=== PATIENT | female | born 1940 | race Caucasian/White ===

== ENCOUNTER → 2023-05-01 12:36 | Outpatient (REF) | payer MEDICARE, BC, SELFPAY ==
[2023-05-01 14:12] LABS: % Basophils 0.6 % (0-2); % Eosinophils 1.9 % (0-6); % Immature Granulocytes 0.5 % (0-0.5); % Lymphocytes 25.1 % (20.5-51.1); % Monocytes 7.4 % (1.7-9.3); % Neutrophils 64.5 % (42.2-75.2); Absolute Basophils 0.1 10^3/uL (0-0.2); Absolute Eosinophils 0.2 10^3/uL (0-0.7); Absolute Lymphocytes 2.1 10^3/uL (1.2-3.4); Absolute Monocytes 0.6 10^3/uL (0.1-0.6); Absolute Neutrophils 5.5 10^3/uL (1.4-6.5); Hemoglobin 14.8 g/dL (12.0-16.0); Mean Corp Hgb Conc. 32.9 g/dL (33.0-37.0); Mean Corpuscular Hgb 28.7 pg (27.0-31.0); Mean Corpuscular Volume 87.2 fL (81.0-99.0); Mean Platelet Volume 11.3 fL (7.4-10.4); Nucleated Red Blood Cells % 0 %; Platelet Count 248 10^3/uL (130-400); Red Blood Cell Count 5.16 10^6/uL (4.20-5.40); Red Cell Dist. Width 14.8 % (11.5-14.5); White Blood Cell Count 8.5 10^3/uL (4.8-10.8)
[2023-05-01 14:50] LABS: Glycohemoglobin (HgbA1c) 7.1 % (4.0-5.6)
[2023-05-01 15:37] LABS: Blood Urea Nitrogen 18 mg/dl (7-17); Calcium 9.5 mg/dl (8.4-10.2); Carbon Dioxide 26 mmol/L (22-30); Chloride 101 mmol/L (98-107); Glucose 164 mg/dl (70-99); Phosphorus 4.3 mg/dl (2.5-4.5); Potassium 4.6 mmol/L (3.5-5.1); Sodium 135 mmol/L (135-145)
== END ==
LOC: REG 12:36
PROVIDERS: ATTENDING PHYSICIAN Student in an Organized Health Care Education/Training Program
DX: R06.09 Other forms of dyspnea (principal); N18.31 Chronic kidney disease, stage 3a; E11.65 Type 2 diabetes mellitus with hyperglycemia
CPT/HCPCS: 36415; 80069; 83036; 85025

== ENCOUNTER → 2023-05-18 10:12 | Outpatient (REF) | payer MEDICARE, BC, SELFPAY | LOC: RAD 10:12 | PROVIDERS: ATTENDING PHYSICIAN Student in an Organized Health Care Education/Training Program | DX: R06.09 Other forms of dyspnea (principal) | CPT/HCPCS: 71250 ==

== ENCOUNTER → 2023-09-08 11:53 | Outpatient (REF) | payer MEDICARE, BC, SELFPAY ==
[2023-09-08 13:33] LABS: Albumin 3.5 g/dl (3.5-5.0); Blood Urea Nitrogen 14 mg/dl (7-17); Calcium 9.5 mg/dl (8.4-10.2); Carbon Dioxide 25 mmol/L (22-30); Chloride 103 mmol/L (98-107); Glucose 136 mg/dl (70-99); Phosphorus 3.8 mg/dl (2.5-4.5); Potassium 4.4 mmol/L (3.5-5.1); Sodium 135 mmol/L (135-145); eGFR 50.48
[2023-09-08 13:57] LABS: Glycohemoglobin (HgbA1c) 6.7 % (4.0-5.6)
== END ==
LOC: REG 11:53
PROVIDERS: ATTENDING PHYSICIAN Student in an Organized Health Care Education/Training Program
DX: E11.22 Type 2 diabetes mellitus with diabetic chronic kidney disease (principal)
CPT/HCPCS: 36415; 80069; 83036

== ENCOUNTER → 2023-09-19 12:41 | Outpatient (REF) | payer MEDICARE, BC, SELFPAY | LOC: RAD 12:41 | PROVIDERS: ATTENDING PHYSICIAN Surgery Vascular Surgery; FAMILY PHYSICIAN Student in an Organized Health Care Education/Training Program | DX: I65.21 Occlusion and stenosis of right carotid artery (principal) | CPT/HCPCS: 93880 ==

== ENCOUNTER → 2024-02-26 12:05 | Outpatient (REF) | payer MEDICARE, BC, SELFPAY | LOC: RAD 12:05 | PROVIDERS: FAMILY PHYSICIAN Student in an Organized Health Care Education/Training Program | DX: J18.9 Pneumonia, unspecified organism (principal) | CPT/HCPCS: 71046 ==

== ENCOUNTER → 2024-05-31 13:23 | Outpatient (REF) | payer MEDICARE, BC, SELFPAY ==
[2024-05-31 14:50] LABS: ALT (SGPT) 43 U/L (0-35); AST (SGOT) 47 U/L (14-36); Albumin 3.9 g/dl (3.5-5.0); Alkaline Phosphatase 111 U/L (38-126); Direct Bilirubin 0.3 mg/dl (0.0-0.4); Total Bilirubin 0.6 mg/dl (0.2-1.3)
[2024-05-31 15:15] LABS: TSH Reflex To Free T4 0.77 uIU/ml (0.47-4.68)
== END ==
LOC: REG 13:23
PROVIDERS: ATTENDING PHYSICIAN Internal Medicine Cardiovascular Disease; FAMILY PHYSICIAN Student in an Organized Health Care Education/Training Program
DX: I48.0 Paroxysmal atrial fibrillation (principal)
CPT/HCPCS: 36415; 80076; 84443

== ENCOUNTER → 2024-07-04 13:13 | Outpatient (REF) | payer MEDICARE, BC, SELFPAY ==
[2024-07-04 15:32] LABS: ALT (SGPT) 42 U/L (0-35); AST (SGOT) 52 U/L (14-36)
== END ==
LOC: REG 13:13
PROVIDERS: ATTENDING PHYSICIAN Internal Medicine Cardiovascular Disease; FAMILY PHYSICIAN Student in an Organized Health Care Education/Training Program
DX: I10 Essential (primary) hypertension (principal); R79.89 Other specified abnormal findings of blood chemistry
CPT/HCPCS: 36415; 84450; 84460

== ENCOUNTER 2024-07-05 15:48 | Inpatient (IN) | payer MEDICARE, BC, SELFPAY ==
[2024-07-05] VITALS (9 sets, daily range): BP systolic 135–176; BP diastolic 61–90; BMI 32.4
[2024-07-05 11:35] LABS: % Basophils 0.4 % (0-2); % Immature Granulocytes 0.4 % (0-0.5); % Lymphocytes 30.6 % (20.5-51.1); % Monocytes 7.5 % (1.7-9.3); % Neutrophils 60.1 % (42.2-75.2); Absolute Eosinophils 0.1 10^3/uL (0-0.7); Absolute Lymphocytes 2.9 10^3/uL (1.2-3.4); Absolute Monocytes 0.7 10^3/uL (0.1-0.6); Absolute Neutrophils 5.7 10^3/uL (1.4-6.5); Hematocrit 47.2 % (37.0-47.0); Hemoglobin 15.6 g/dL (12.0-16.0); Mean Corp Hgb Conc. 33.1 g/dL (33.0-37.0); Mean Corpuscular Hgb 29.3 pg (27.0-31.0); Mean Corpuscular Volume 88.7 fL (81.0-99.0); Mean Platelet Volume 11.2 fL (7.4-10.4); Nucleated Red Blood Cells % 0 %; Platelet Count 224 10^3/uL (130-400); Red Blood Cell Count 5.32 10^6/uL (4.20-5.40); Red Cell Dist. Width 14.4 % (11.5-14.5); White Blood Cell Count 9.5 10^3/uL (4.8-10.8)
[2024-07-05 11:44] LABS: APTT 33.6 Sec (23.4-35.0)
[2024-07-05 11:48] LABS: ALT (SGPT) 39 U/L (0-35); AST (SGOT) 50 U/L (14-36); Albumin 3.8 g/dl (3.5-5.0); Alkaline Phosphatase 112 U/L (38-126); Blood Urea Nitrogen 15 mg/dl (7-17); Carbon Dioxide 24 mmol/L (22-30); Chloride 106 mmol/L (98-107); Glucose 221 mg/dl (70-99); Potassium 4.3 mmol/L (3.5-5.1); Sodium 137 mmol/L (135-145); Total Bilirubin 0.8 mg/dl (0.2-1.3); Total Protein 6.9 g/dl (6.3-8.2)
--- NOTE | 2024-07-05 14:52 | ED.GENMED ---
History of Present Illness
General
Chief Complaint: Rectal Bleeding
Source: patient
Exam Limitations: none
Time Seen by Provider: 07/05/24 13:56
Nursing documentation reviewed up to this point in time: agreed with
History of Present Illness
History of Present Illness:
Patient with history of paroxysmal atrial fibrillation on Eliquis, presents to ED secondary to multiple episodes of bloody bowel movements with intermittent abdominal cramping sensation since last night. Denies fever or chills. Denies nausea or
vomiting. Denies trauma. Denies dizziness. Denies shortness of breath. Denies recent change in medications or diet. Denies recent illness. Denies recent travel. Patient reports having had similar approximate 25 years ago, when she was
diagnosed with colitis w multiples ulcers, now resolved.
Past History
Past History
ED Past Medical History: Arrthythmia, HTN, Hypercholesterolemia, NIDDM and Other (Prediabetes prediabetes)
ED Past Surgical History: Cholecystectomy and Gynecological (Tubal ligation)
Social History
Tobacco: Non-smoker
Alcohol: None
Drug: None
Personal:
Living: alone
Employment: Retired
Family History
Family History: Other (Mother and father with coronary disease. Grandmother with a cerebral hemorrhage)
Review of Systems
Review of Systems
Allergies reviewed?: Yes
All Other Systems: ROS reviewed and negative except as documented in HPI and ROS
Constitutional: Reports no symptoms; Denies fever
Respiratory: Reports no symptoms
ABD/GI: Reports abdominal pain and bloody stools; Denies nausea or vomiting
Musculoskeletal: Reports no symptoms
Skin: Reports no symptoms
Neurological: Reports no symptoms; Denies dizzy or weakness
Phy Exam
Physical Exam
Physical Exam:
Physical Exam
General: no apparent distress, not acutely ill. afebrile
Head: nc/at. eomi
Neck: supple. no meningeal signs.
Heart: s1/s2 regular rate and rhythm
Lungs: no acute respiratory distress. clear bilaterally
Abdomen: normal bowel sounds. not tender
Neuro: alert and oriented x 3. no focal neurological deficits
Skin: no rash
Psychiatric: well kept. interactive and cooperative
Extremities: no edema. no calf tenderness.
Course
Orders/Labs/Results
Orders:
Orders
07/05/24 11:19
Type+Screen Urgent
Complete Blood Count/With Diff Urgent
Comprehensive Metabolic Panel Urgent
PTT Urgent
07/05/24 15:19
Admit/Transfer Patient As Directed
Co-Sign Provider:
Level of Care: Inpatient admission
Assign to:: Medical/Surgical
Physician / Group: rolando
Diagnosis: gi bleeding
Reason for Hospitalization: gi bleeding
Expected length of stay greater than two midnights?: Yes
ELOS- Estimated Length of Stay in days: 2
I certify the patient meets the requirements for IP care: Yes
PRN Pain Medication Management As Directed
May give lesser potent ordered pain med per pt: Yes
preference::
Protocol:: Medication orders for pain may be administered in a
manner that supports deferring to patient preference
when the pt is:
- Requesting an ordered lesser potent pain medication.
Least to most potent pain medications are defined
as: acetaminophen < NSAID < tramadol < opioids
(morphine, oxycodone, hydromorphone).
- Requesting a lesser dose of the same medication IF
ORDERED.
- Requesting a less intrusive route of administration
if both routes are prescribed by the provider (PO <
IV).
07/05/24 15:20
Code Status As Directed
Resuscitation Status: Do not resuscitate
Reached after discussion with pt or family/Healthcare POA: Yes
DNR Bracelet Application ONCE
Abnormal Lab Results
07/05/24
11:19
Hct 47.2 H %
(37.0-47.0)
MPV 11.2 H fL
(7.4-10.4)
Absolute Monos (auto) 0.7 H 10^3/uL
(0.1-0.6)
Creatinine 1.4 H mg/dL
(0.6-1.0)
Glucose 221 H mg/dl
(70-99)
AST 50 H U/L
(14-36)
ALT 39 H U/L
(0-35)
07/05/24 11:19
07/05/24 11:19
Vital Signs
Initial and Last Documented VS:
Initial Vital Signs
Temp Pulse Resp BP Pulse Ox
98.0 F 91 20 135/90 97
07/05/24 11:09 07/05/24 11:09 07/05/24 11:09 07/05/24 11:09 07/05/24 11:09
Last Documented Vital Signs
Temp Pulse Resp BP Pulse Ox
98.0 F 60 18 170/72 97
07/05/24 11:09 07/05/24 20:04 07/05/24 16:21 07/05/24 20:00 07/05/24 20:00
MDM/Problems Addressed
MDM/Problems Addressed:
H/H noted.
Will admit for further evaluation and treatment, as she has had 3 additional episodes of bloody BMs, during observation in ED.
Discussed with () via tigertext
*Critical Care Note
Total Time (30-74mins, 75-104mins- exclusive of procedures): Not Applicable
ED Attending Note
-
Portions of this chart may have been created with voice recognition software.� Occasional wrong word or��sound alike� substitutions may have occurred due to the inherent limitations of voice recognition software.
Discharge Plan
Departure
Patient Disposition: Admit
Date of Disposition: 07/05/24
Time of Disposition: 15:04
Presentation/result/management discussed w/ accepting MD/DO: Hospitalist
Discharge Problem:
Rectal bleeding
Interventions
Interventions:
*Risk Screen - Suicide Last Done: 07/05/24 16:20
*General Assessment Last Done: 07/05/24 11:09
*Neglect/Abuse Screening Last Done: 07/05/24 16:20
*ED- Fall Risk Assessment Last Done: 07/05/24 16:20
*ED COVID-19 Vaccine History Last Done: 07/05/24 18:28
XT-Grsfkn-Lpplojzlbk Assessment Last Done: 07/05/24 16:35
ED- Cardiac Assessment Last Done: 07/05/24 16:35
ED- Pulmonary Assessment Last Done: 07/05/24 16:35
--- NOTE | 2024-07-05 15:09 | CON.GI ---
Addendum entered and electronically signed by Carlee Mcneil MD 07/05/24 16:50:
I saw and examined the patient.
The [facility]'s note was reviewed and I agree with the note.
Comment: This is a very pleasant 83-year-old female with past medical history of A-fib on Eliquis, diabetes on Rybelsus, status post pacemaker, hypertension, hyperlipidemia, PE, PVD, remote h/o UC rest of medical history as below who had presented
with to lab yesterday for blood draw and she says that she was having minimal abdominal cramping and had not really eaten much yesterday and had very little to drink but when she went home she started to experience lower abdominal cramps and had
then noticed blood in her stool. Then she felt a little bit better but today morning she had a couple more episodes of cramping with rectal bleeding and presented to the emergency room. She did have mild dizziness no syncope. No fevers or chills
no nausea or vomiting. She was having lower abdominal pain predominantly left lower quadrant pain. Her hemoglobin on admission is stable she has mildly elevated AST and ALT level which has been stable over the past couple months. She says since
she started the Rybelsus she has been having more constipation and takes Colace as needed she says MiraLAX did not help her in the past. Remote history of UC but has not been on medications and has been in remission her last colonoscopy was in [address] Tom which showed diverticulosis and minimal erythema in the sigmoid colon.
Assessment and plan abdominal pain with rectal bleeding most likely ischemic colitis versus less likely diverticulitis with bleeding or infectious colitis, less likely IBD she does have a remote history of UC but has not been on medications and in
remission unclear if it was probable segmental colitis related to diverticulosis versus UC. Since her symptoms have improved and she has not had any further rectal bleeding will hold on CT for now but if her symptoms recur then will get a CAT scan
she also has mildly elevated creatinine so will not be able to get contrast for CTA currently. her Eliquis is also on hold. She also has mildly elevated AST and ALT which could be related to fatty liver and also could be related to amiodarone and
simvastatin been stable and will need further workup as outpatient. May also need an abdomen ultrasound. she has lost weight since she started the Rybelsus.
Addendum entered and electronically signed by LATIA Sargent 07/05/24 16:24:
cont to hold Eliquis last dose 07/04 PM
Original Note:
Consultation
-
Date/Time Consultation Requested: 07/05/24 1500
Date/Time Consultation Performed: 07/05/24 1510
Requesting Provider: Rudi Barker MD
Performing Provider: LATIA Alvarez, Carlee Mcneil MD
Reason for Consultation: rectal bleeding
Medical History
Chief Complaint / HPI
Chief Complaint: bloody stools
History of Present Illness:
Pt is a 83yo presents hx afib on Eliquis prior RVR, distant hx ? ulcerative colitis pt recall prednisone therapy, NIDDM on Rybelsus with wt loss, GERD, HTN, hyperlipidemia, PE, obesity, PVD, prior CBD stone ERCP and bertha with onset of multiple
bloody BM's since 07/04. Initially pt saw red bleed then some darker clots. Bleeding was associated with some lower abdominal pain. On admission labs notable for hbg 15.6, creat 1.4, glucose 221, bili 0.8, AST 50, ALT 39, alk phos 112 with recent
elevated LFT's. CT held on admission with elevated creat and slow improved bleeding.
In review with patient she admit to history of ulcerative colitis many years ago. She has not had any recurrent symptoms but admits to constipation over last year since starting Rybelsus. She admits to hx GERD with Prilosec BID use, She
otherwise denies dysphagia, odynophagia, nausea, vomiting, diarrhea or black stools. hx colonoscopy [address] Dr. Tom - Diverticulosis. - Erythematous mucosa in the sigmoid colon. - Diverticulosis without evidence of diverticular bleeding. -
Irritable bowel syndrome. - Hemorrhoids.
Past Medical History
Past Medical History: Arrhythmias (afib with hx RVR on chronic Eliquis, bradicardia ), GERD, HTN, Hypercholesterolemia, NIDDM and Other (PE 2008,obesity, DJD, PVD, possible ulcerative colitis 20 + years ago with prednisone therapy )
Past Surgical History: Cardiac (pacer), Cholecystectomy, Gynecological (tubal ) and Other (ERCP [address] Linn stone removal and sphincterotomy, CEA 2020)
Social History
Tobacco: Non-Smoker
Alcohol: None
Drug: None
Living: Alone (leaves next to son )
Employment: Retired
Family History
Family History: Other (son with colon polyps )
Allergies / Home Medications
Allergy/AdvReac Type Severity Reaction Status Date / Time
amoxicillin trihydrate (From Allergy Diarrhea Verified 07/05/24 11:09
Augmentin)
atorvastatin (From Lipitor) Allergy Vomiting Verified 07/05/24 11:09
benazepril (From Lotensin) Allergy Headache Verified 07/05/24 11:09
lisinopril Allergy Dizziness Verified 07/05/24 11:09
metformin Allergy Nausea Verified 07/05/24 11:09
triamterene (From Dyazide) Allergy Thirsty Verified 07/05/24 11:09
�Medication �Instructions �Recorded
lansoprazole 15 mg capsule,delayed 15 mg PO BID Gastrointestinal issue 09/30/20
release
simvastatin 10 mg tablet 10 mg PO HS High cholesterol 09/30/20
acetaminophen 650 mg 1,300 mg PO DAILY Pain 09/23/21
tablet,extended release
metoprolol succinate 25 mg 12.5 mg PO DAILY Heart 09/23/21
tablet,extended release 24 hr disease/condition
peg 400-propylene glycol (PF) 0.4 1 drp BOTH EYES BID Eye condition 09/23/21
%-0.3 % eye drops in a dropperette
(Systane (PF))
amiodarone 200 mg tablet (Pacerone) 200 mg PO DAILY 07/05/24
apixaban 5 mg tablet (Eliquis) 5 mg PO BID 07/05/24
diltiazem HCl 240 mg capsule,24 240 mg PO DAILY 07/05/24
hr,extended release
loratadine-pseudoephedrine ER 10 1 tab PO DAILY 07/05/24
mg-240 mg tablet,extended
[id number] (Claritin-D 24 Hour)
semaglutide 3 mg tablet (Rybelsus) 3 mg PO DAILY 07/05/24
Review of Systems
-
History Source: Patient
Constitutional: Reports Weight Loss ( 40 lbs over last month with recent Rybelsus use )
EENT: Reports No Symptoms
Respiratory: Reports No Symptoms
Cardiac: Reports No Symptoms
Abdomen/GI: Reports Abdominal Pain, Constipated and Bloody Stools
: Reports No Symptoms
Musculoskeletal: Reports No Symptoms
Skin: Reports Other (redness of forehead with current derm treatment )
Neurological: Reports No Symptoms
Endocrine: Reports No Symptoms
Hematologic/Lymphatic: Reports Bleeding
Vital Signs
Temp Pulse Resp BP Pulse Ox
98.0 F 91 20 135/90 97
07/05/24 11:09 07/05/24 11:09 07/05/24 11:09 07/05/24 11:09 07/05/24 11:09
Physical Exam
Exam
General: Well Developed, Well Nourished and No Apparent Distress
HEENT: Normocephalic and Anicteric
Respiratory: Clear
Cardiac: Regular Rhythm
GI: Soft, Tender (left lower and mid lower abdomen ) and Other (large abdomen )
Musculoskeletal: No Clubbing and No Cyanosis
Skin: Warm and Dry
Neuro: Awake, Alert and AO x 3
Psych: Calm
Results
WBC 9.5 10^3/uL (4.8-10.8) 07/05/24 11:19
Hgb 15.6 g/dL (12.0-16.0) 07/05/24 11:19
Hct 47.2 % (37.0-47.0) H 07/05/24 11:19
MCV 88.7 fL (81.0-99.0) 07/05/24 11:19
Plt Count 224 10^3/uL (130-400) 07/05/24 11:19
Absolute Neuts (auto) 5.7 10^3/uL (1.4-6.5) 07/05/24 11:19
APTT 33.6 Sec (23.4-35.0) 07/05/24 11:19
Sodium 137 mmol/L (135-145) 07/05/24 11:19
Potassium 4.3 mmol/L (3.5-5.1) 07/05/24 11:19
Chloride 106 mmol/L (98-107) 07/05/24 11:19
Carbon Dioxide 24 mmol/L (22-30) 07/05/24 11:19
BUN 15 mg/dl (7-17) 07/05/24 11:19
Creatinine 1.4 mg/dL (0.6-1.0) H 07/05/24 11:19
Calcium 9.0 mg/dl (8.4-10.2) 07/05/24 11:19
Total Bilirubin 0.8 mg/dl (0.2-1.3) 07/05/24 11:19
AST 50 U/L (14-36) H 07/05/24 11:19
ALT 39 U/L (0-35) H 07/05/24 11:19
Alkaline Phosphatase 112 U/L (38-126) 07/05/24 11:19
Diagnostic Image Results:
Prior GI Procedures:
EGD: none
Colonoscopy: 2004 Dr. Tom - Diverticulosis. - Erythematous mucosa in the sigmoid colon. - Diverticulosis without evidence of diverticular bleeding. - Irritable bowel syndrome. - Hemorrhoids.
Assessment / Plan
-
Pt is a 83yo presents hx afib on Eliquis prior RVR, distant hx ? ulcerative colitis pt recall prednisone therapy, NIDDM on Rybelsus with wt loss, GERD, HTN, hyperlipidemia, PE, obesity, PVD, prior CBD stone ERCP and bertha with onset of multiple
bloody BM's since 07/04. Initially pt saw red bleed then some darker clots. Bleeding was associated with some lower abdominal pain. On admission labs notable for hbg 15.6, creat 1.4, glucose 221, bili 0.8, AST 50, ALT 39, alk phos 112 with recent
elevated LFT's. In review with patient she admit to history of ulcerative colitis many years ago. She has not had any recurrent symptoms but admits to constipation over last year since starting Rybelsus. hx colonoscopy 2004 Dr[address] Tom -
Diverticulosis. - Erythematous mucosa in the sigmoid colon. - Diverticulosis without evidence of diverticular bleeding. - Irritable bowel syndrome. - Hemorrhoids.
-rectal bleeding
-left lower and mid abdominal pain
-distant hx ? ulcerative colitis
-wt loss over last years with Rybelsus for NIDDM
-transaminase elevation
-chronic constipation with Fybesus use
-CKD
other med problems:
-GERD
-HTN
-hyperlipidemia
-PE
-obesity
-prior CBD stone/ERCP and bertha
-son with hx colon polyps
PLAN:
etiology of rectal bleeding with pain related to colitis - ? ischemic with recent fasting for blood work, vs IBD with hx colitis/infectious vs diverticular bleed with large volume of blood then less bleeding
bleeding with less volume with last stool
if begins to pass large volume blood consider CTA if creat allows vs nuclear bleeding scan
if continued pain consider CT with IV/oral if creat allow
if persistent bleeding consider colonoscopy
trend hbg and stool record
LFT elevation may be med related with amiodarone and statin vs other
cont to trend
add hepatitis panel
if unable to do contrast CT consider US abdomen
ok for sips clears - advance in AM
-
-
-
Thank you for consultation and allowing me to participate in the patient's care. Please call the manager money GI physician during the after hours with any questions or concerns.
--- NOTE | 2024-07-05 15:23 | HPS.HSE ---
Addendum entered and electronically signed by Deneen Witt MD 07/05/24 21:17:
Correction- Continue amiodarone and diltiazem.
Addendum entered and electronically signed by Deneen Witt MD 07/05/24 20:00:
Possible ischemic colitis given diarrhea. Check stool culture if recurrent diarrhea.
Original Note:
Family Physician
-
Family Physician: Joann Dunn MD
Chief Complaint
-
rectal bleeding
History of Present Illness
83-year-old female past medical history of gastric ulcer bleeding 25 years ago, IBS, chronic diarrhea, paroxysmal atrial fibrillation on Eliquis, bradycardia status post dual-chamber permanent pacemaker, hypertension, hyperlipidemia, diabetes,
peripheral vascular disease, right carotid endarterectomy in 2020, pulmonary embolism 2004, presenting with multiple bloody bowel movements bright red blood with clots and intermittent abdominal cramping in the lower abdomen and left side with no
fevers but she was having sweats. No nausea or vomiting. No dizziness. No shortness of breath. No recent travel or illness.
She had a colonoscopy 9 years ago and was told that she had evidence of IBS but no polyps or diverticulosis.
She has a history of chronic diarrhea but ever since she started Rybelsus she has been having constipation and sometimes has to take Colace. She has not needed to take Colace for a week.
She denies smoking or alcohol use.
No family history of GI bleeding.
Medical History
Past Medical History
Past Medical History: Reports Other (gastric ulcer bleeding 25 years ago, IBS, chronic diarrhea, paroxysmal atrial fibrillation on Eliquis, bradycardia status post dual-chamber permanent pacemaker, hypertension, hyperlipidemia, diabetes, peripheral
vascular disease, right carotid endarterectomy in 2020, pulmonary embolism 2004)
Past Surgical History: Reports None
Social History
Tobacco: Non-smoker
Alcohol: None
Drug: None
Family History
Family History: Not pertinent
Allergies / Home Medications
Allergies reflects when Allergies were last updated in [facility].
Home Medications with original date entered in [facility]
Allergy/Medication List:
Allergies
Allergy/AdvReac Type Severity Reaction Status Date / Time
amoxicillin trihydrate (From Allergy Diarrhea Verified 07/05/24 11:09
Augmentin)
atorvastatin (From Lipitor) Allergy Vomiting Verified 07/05/24 11:09
benazepril (From Lotensin) Allergy Headache Verified 07/05/24 11:09
lisinopril Allergy Dizziness Verified 07/05/24 11:09
metformin Allergy Nausea Verified 07/05/24 11:09
triamterene (From Dyazide) Allergy Thirsty Verified 07/05/24 11:09
Home Medications
lansoprazole 15 mg capsule,delayed release 15 mg PO BID Gastrointestinal issue 09/30/20
simvastatin 10 mg tablet 10 mg PO HS High cholesterol 09/30/20
acetaminophen 650 mg tablet,extended release 1,300 mg PO DAILY Pain 09/23/21
metoprolol succinate 25 mg tablet,extended release 24 hr 12.5 mg PO DAILY Heart disease/condition 09/23/21
peg 400-propylene glycol (PF) 0.4 %-0.3 % eye drops in a dropperette (Systane (PF)) 1 drp BOTH EYES BID Eye condition 09/23/21
amiodarone 200 mg tablet (Pacerone) 200 mg PO DAILY 07/05/24
apixaban 5 mg tablet (Eliquis) 5 mg PO BID 07/05/24
diltiazem HCl 240 mg capsule,24 hr,extended release 240 mg PO DAILY 07/05/24
loratadine-pseudoephedrine ER 10 mg-240 mg tablet,extended [id number] (Claritin-D 24 Hour) 1 tab PO DAILY 07/05/24
semaglutide 3 mg tablet (Rybelsus) 3 mg PO DAILY 07/05/24
Review of Systems
-
History Source: Patient
A 12 point ROS was completed and negative except as noted: Yes
Constitutional: Reports No Symptoms
EENT: Reports No Symptoms
Respiratory: Reports No Symptoms
Cardiac: Reports No Symptoms
Abdomen/GI: Reports See HPI
: Reports No Symptoms
Musculoskeletal: Reports No Symptoms
Skin: Reports No Symptoms
Neurological: Reports No Symptoms
Endocrine: Reports No Symptoms
Hematologic/Lymphatic: Reports No Symptoms
Psych: Reports No Symptoms
Physical Exam
Vital Signs
Vital Signs
Temp Pulse Resp BP Pulse Ox
98.0 F 91 20 135/90 97
07/05/24 11:09 07/05/24 11:09 07/05/24 11:09 07/05/24 11:09 07/05/24 11:09
Physical Exam
General: Well Developed, Well Nourished and No Apparent Distress
HEENT: NormoCephalic, Moist mucous membranes and Atraumatic
Respiratory: Clear
Cardiac: S1/S2 and Regular Rhythm; No Murmur or Rub
GI: Soft, Non Distended, Normal Bowel Sounds and Tender (tender left side ); No Organomegaly
Rectal: Deferred by Provider
Musculoskeletal: No Clubbing, No Cyanosis and No Edema
Skin: No Rash
Neuro: Nonfocal/grossly intact
Laboratory Results
-
07/05/24 11:19
07/05/24 11:19
Laboratory Results
APTT 33.6 Sec (23.4-35.0) 07/05/24 11:19
Total Bilirubin 0.8 mg/dl (0.2-1.3) 07/05/24 11:19
AST 50 U/L (14-36) H 07/05/24 11:19
ALT 39 U/L (0-35) H 07/05/24 11:19
Alkaline Phosphatase 112 U/L (38-126) 07/05/24 11:19
Data Reviewed
-
Lab Data: Labs Reviewed by me
Old Records: Reviewed
Impression/Plan
-
IMPRESSION:
PLAN:
# Bright red blood per rectum likely lower GI bleeding possibly diverticular
-Tenderness in the left and lower quadrants
-No active bleeding currently
-Hemoglobin 15
-Hold Eliquis
-Clear liquid diet, n.p.o. past midnight
- Check CTA abdomen pelvis with further bloody bowel movements
- GI consulted
Paroxysmal atrial fibrillation
- Hold Eliquis
- Hold amiodarone
- Hold diltiazem
History of bradycardia status post dual-chamber permanent pacemaker
History of IBS
History of gastric ulcer bleeding 25 years ago
Essential hypertension
- Continue metoprolol
Hyperlipidemia
- Continue statin
Type 2 diabetes
- Hold Rybelsus
- Insulin sliding scale
Peripheral vascular disease
History of right carotid endarterectomy 2020
History of pulmonary embolism in 2004
DNR/DNI
DVT prophylaxis�SCDs
N.p.o.
--- NOTE | 2024-07-05 16:22 | CM ---
Met with patient and [id number] at bedside in ED
Pharmacy verified: [facility] @ [address] [facility]
Patient lives alone, multilevel home; 7 small steps to enter; railing on stairs; uses Chair Lift to 2nd floor bedroom and bathroom; bath has step in tub; home has full bath on 1st floor; Recliner in the living room if she needs to stay on one floor
PLOF: reports she is retired; independent with personal care; ambulates with a cane PRN; drives; family assists with food shopping
No SNF or Home Health utilization history
Family will transport home
Plan: Anticipate discharge to home when medically stable; CM will monitor for discharge needs and support coordination of care if needed
[2024-07-05] MEDS: PROTONIX 20 MG PO (21:44)
[2024-07-05] MEDS: REFRESH EYE DROPS (PF) 1 DROPS BOTH EYES (21:44)
[2024-07-05 21:46] LABS: Glucose - Point of Care 97 mg/dl (70-99)
[2024-07-06] MEDS: TYLENOL PO ×2 (00:05→05:14)
[2024-07-06 05:54] LABS: Glucose - Point of Care 87 mg/dl (70-99)
--- NOTE | 2024-07-06 07:09 | W.PN.HOSP.TC ---
Today's Communication/Plan
-
Start clear liquid
Assessment / Plan
Assessment / Plan
Impression:
83-year-old female past medical history of gastric ulcer bleeding 25 years ago, IBS, chronic diarrhea, paroxysmal atrial fibrillation on Eliquis, bradycardia status post dual-chamber permanent pacemaker, hypertension, hyperlipidemia, diabetes,
peripheral vascular disease, right carotid endarterectomy in 2020, pulmonary embolism 2004, presenting with multiple bloody bowel movements bright red blood with clots and intermittent abdominal cramping in the lower abdomen and left side with no
fevers but she was having sweats. No nausea or vomiting. No dizziness. No shortness of breath. No recent travel or illness.
No further bowel movements.
GI recommending clear liquid
Assessment/plan:
Acute Bright red blood per rectum likely lower GI bleeding possibly diverticular
History of IBS
History of gastric ulcer bleeding 25 years ago
-Tenderness in the left and lower quadrants
-No active bleeding currently
-Hemoglobin stable
-Hold Eliquis
-Clear liquid diet.
Seen by GI to consider CTA abdomen pelvis with further bloody bowel movements
Paroxysmal atrial fibrillation
Currently sinus rhythm
- Hold Eliquis
- Hold amiodarone
- Hold diltiazem
History of bradycardia status post dual-chamber permanent pacemaker
Essential hypertension
- Continue metoprolol
Hyperlipidemia
- Continue statin
History of diabetes mellitus
Hold Rybelsus
Insulin sliding scale
Diabetic diet
Hemoglobin A1c pending.
Peripheral vascular disease
History of right carotid endarterectomy 2020
History of pulmonary embolism in 2004
CODE STATUS: DNR/DNI
DVT prophylaxis: SCDs
Diet: Clear liquid
Disposition: Liquid diet, monitor hb
Total time spent on today's encounter was 65 minutes which included time spent in counseling the patient/family regarding diagnosis and treatment plan as listed above, goals of care, and symptom management. Case was discussed with nursing staff,
specialists, and care coordinators/case management. All labs and imaging personally reviewed by me. Remainder the time spent in detailed review of previous records, lab data, imaging, and other medical provider documentation.
Anticipated Discharge: 24 - 48 hours
Subjective/Interval History
-
Date of Service: July 06, 2024
Patient seen and examined at bedside, denies any chest pain or shortness of breath, still with mild left lower quadrant abdominal pain, no nausea, no vomiting, no more diarrhea.
GI recommending clear liquid.
Objective Data
-
Labs:
Laboratory Results
07/06/24
06:15
WBC Pending
Hgb Pending
Hct Pending
Plt Count Pending
Sodium Pending
Potassium Pending
Chloride Pending
Carbon Dioxide Pending
BUN Pending
Creatinine Pending
Glucose Pending
Calcium Pending
Total Bilirubin Pending
AST Pending
ALT Pending
Alkaline Phosphatase Pending
Vital Signs:
Vital Signs
Temp Pulse Resp BP Pulse Ox
97.7 F 61 20 153/78 97
07/05/24 20:58 07/05/24 21:23 07/05/24 20:58 07/05/24 21:23 07/05/24 20:58
Physical Exam
-
General: Well Developed, Well Nourished, No Apparent Distress and Comfortable
HEENT: Normocephalic, Atraumatic, Moist Mucous Membranes, No Ptosis, PERRLA and Nose Appears Normal
Respiratory: Clear to Auscultation and Non Labored Respirations
Cardiac: Regular Rhythm and S1/S2
Breast: Deferred by me
GI: Soft, Nondistended, Normal Bowel Sounds and Tender (Mild left lower quadrant tenderness)
Genito-urinary: No Costovertebral Tender
Musculoskeletal: No Clubbing, No Cyanosis and No Edema
Skin: Warm
Neuro: Awake, Alert, Oriented, AO x 3 and No Motor Deficits
Psych: Calm
Data Reviewed
-
Diagnostic Radiology: Image personally visualized and interpreted and Report Reviewed by me
CT Scan: Image personally visualized and interpreted and Report Reviewed by me
Ultrasound: Image personally visualized and interpreted and Report Reviewed by me
MRI: Image personally visualized and interpreted and Report Reviewed by me
Medical Tests (Nuc Med, Echo etc): Image personally visualized and interpreted and Report Reviewed by me
Labs: Labs Reviewed by me
Old Records: Reviewed
[2024-07-06 07:16] LABS: % Basophils 0.2 % (0-2); % Eosinophils 1.4 % (0-6); % Immature Granulocytes 0.4 % (0-0.5); % Lymphocytes 27.1 % (20.5-51.1); % Monocytes 8.6 % (1.7-9.3); % Neutrophils 62.3 % (42.2-75.2); Absolute Eosinophils 0.1 10^3/uL (0-0.7); Absolute Lymphocytes 2.3 10^3/uL (1.2-3.4); Absolute Monocytes 0.7 10^3/uL (0.1-0.6); Absolute Neutrophils 5.2 10^3/uL (1.4-6.5); Hematocrit 44.3 % (37.0-47.0); Hemoglobin 14.7 g/dL (12.0-16.0); Mean Corp Hgb Conc. 33.2 g/dL (33.0-37.0); Mean Corpuscular Hgb 29.1 pg (27.0-31.0); Mean Corpuscular Volume 87.5 fL (81.0-99.0); Mean Platelet Volume 11.6 fL (7.4-10.4); Nucleated Red Blood Cells % 0 %; Platelet Count 195 10^3/uL (130-400); Red Blood Cell Count 5.06 10^6/uL (4.20-5.40); Red Cell Dist. Width 14.2 % (11.5-14.5); White Blood Cell Count 8.4 10^3/uL (4.8-10.8)
[2024-07-06] MEDS: TOPROL XL 12.5 MG PO (07:27)
[2024-07-06] MEDS: PROTONIX 40 MG PO ×2 (07:27→19:44)
[2024-07-06] MEDS: REFRESH EYE DROPS (PF) 1 DROPS BOTH EYES ×2 (07:27→19:44)
[2024-07-06] MEDS: CARDIZEM CD 240 MG PO (07:28)
[2024-07-06] MEDS: PACERONE 200 MG PO (07:28)
[2024-07-06] MEDS: CLARITIN 10 MG PO (07:28)
[2024-07-06 07:40] LABS: ALT (SGPT) 37 U/L (0-35); AST (SGOT) 44 U/L (14-36); Albumin 3.3 g/dl (3.5-5.0); Alkaline Phosphatase 89 U/L (38-126); Blood Urea Nitrogen 17 mg/dl (7-17); Calcium 8.9 mg/dl (8.4-10.2); Carbon Dioxide 25 mmol/L (22-30); Chloride 105 mmol/L (98-107); Estimated Creatinine Clearance 36 ml/min; Glucose 111 mg/dl (70-99); Potassium 4.5 mmol/L (3.5-5.1); Sodium 137 mmol/L (135-145); Total Bilirubin 0.8 mg/dl (0.2-1.3); Total Protein 6.4 g/dl (6.3-8.2); eGFR 41.31
[2024-07-06 07:46] VITALS: BP 143/69
[2024-07-06 09:49] LABS: Glycohemoglobin (HgbA1c) 6.3 % (4.0-5.6)
--- NOTE | 2024-07-06 10:14 | W.PN.GI.CBS2 ---
Today's Communication / Plan
-
CLD
trend HB
Assessment / Plan
-
Pt is a 83yo presents hx afib on Eliquis prior RVR, distant hx ? ulcerative colitis pt recall prednisone therapy, NIDDM on Rybelsus with wt loss, GERD, HTN, hyperlipidemia, PE, obesity, PVD, prior CBD stone ERCP and bertha with onset of multiple
bloody BM's since 07/04. Initially pt saw red bleed then some darker clots. Bleeding was associated with some lower abdominal pain. On admission labs notable for hbg 15.6, creat 1.4, glucose 221, bili 0.8, AST 50, ALT 39, alk phos 112 with recent
elevated LFT's. In review with patient she admit to history of ulcerative colitis many years ago. She has not had any recurrent symptoms but admits to constipation over last year since starting Rybelsus. hx colonoscopy 2004 Dr. Tmo -
Diverticulosis. - Erythematous mucosa in the sigmoid colon. - Diverticulosis without evidence of diverticular bleeding. - Irritable bowel syndrome. - Hemorrhoids.
-rectal bleeding
-left lower and mid abdominal pain
-distant hx ? ulcerative colitis
-wt loss over last years with Rybelsus for NIDDM
-transaminase elevation
-chronic constipation with Fybesus use
-CKD
other med problems:
-GERD
-HTN
-hyperlipidemia
-PE
-obesity
-prior CBD stone/ERCP and bertha
-son with hx colon polyps
PLAN:
Left lower quadrant pain with diarrhea and rectal bleeding most likely related to ischemic colitis versus less likely acute diverticulitis or related to angioectasias. Less likely related to hemorrhoids
Hold on CT since her pain is improving and no further bleeding
Will advance to clear liquids
Continue to monitor hemoglobin off Eliquis
If no further bleeding could restart Eliquis Monday
LFT elevation may be med related with amiodarone and statin vs MAFLD
cont to trend
add hepatitis panel - P
if unable to do contrast CT consider US abdomen
-
Subjective
Subjective
Date of Service: July 06, 2024
No further bowel movement or rectal bleeding since admission
Still with mild left lower quadrant discomfort
Hemoglobin remained stable off Eliquis with no further bleeding
no m/v
afebrile
Objective
Data Reviewed
Laboratory Data:
Laboratory Results
07/06/24 06:15
07/06/24 06:15
Laboratory Results
APTT 33.6 Sec (23.4-35.0) 07/05/24 11:19
Total Bilirubin 0.8 mg/dl (0.2-1.3) 07/06/24 06:15
AST 44 U/L (14-36) H 07/06/24 06:15
ALT 37 U/L (0-35) H 07/06/24 06:15
Alkaline Phosphatase 89 U/L (38-126) 07/06/24 06:15
Vital Signs and I&O:
Vital Signs
Temp Pulse Resp BP Pulse Ox
98.1 F 61 18 143/69 98
07/06/24 07:46 07/06/24 07:46 07/06/24 07:46 07/06/24 07:46 07/06/24 07:46
Physical Exam
Physical Exam
Cardiology: Normal Sinus Rhythm
Pulmonary: Clear
GI: Soft, Non Distended, Tender (LLQ) and Normal Bowel Sounds
[2024-07-06 12:38] LABS: Glucose - Point of Care 135 mg/dl (70-99)
[2024-07-06] MEDS: NOVOLOG FLEXPEN-LOW RESISTANCE SC ×2 (12:38→16:53)
[2024-07-06] MEDS: TYLENOL 650 MG PO (12:48)
[2024-07-06 15:25] VITALS: BP 118/72
[2024-07-06 16:50] LABS: Glucose - Point of Care 97 mg/dl (70-99)
[2024-07-06 21:44] LABS: Glucose - Point of Care 79 mg/dl (70-99)
[2024-07-06 23:09] VITALS: BP 140/63
[2024-07-07 06:52] LABS: Hematocrit 44.5 % (37.0-47.0); Hemoglobin 14.7 g/dL (12.0-16.0); Mean Corpuscular Hgb 29.2 pg (27.0-31.0); Mean Corpuscular Volume 88.5 fL (81.0-99.0); Mean Platelet Volume 11.4 fL (7.4-10.4); Platelet Count 193 10^3/uL (130-400); Red Blood Cell Count 5.03 10^6/uL (4.20-5.40); Red Cell Dist. Width 14.6 % (11.5-14.5); White Blood Cell Count 8.3 10^3/uL (4.8-10.8)
[2024-07-07 07:00] VITALS: BP 136/55
[2024-07-07 07:31] LABS: Blood Urea Nitrogen 15 mg/dl (7-17); Calcium 9.1 mg/dl (8.4-10.2); Carbon Dioxide 26 mmol/L (22-30); Chloride 108 mmol/L (98-107); Estimated Creatinine Clearance 33 ml/min; Glucose 119 mg/dl (70-99); Potassium 4.4 mmol/L (3.5-5.1); Sodium 138 mmol/L (135-145)
[2024-07-07 07:52] LABS: Glucose - Point of Care 107 mg/dl (70-99)
--- NOTE | 2024-07-07 08:22 | W.PN.GI.CBS2 ---
Today's Communication / Plan
-
LRD
OK to DC home
Colace daily and Senna/MOM PRN
Assessment / Plan
-
Pt is a 83yo presents hx afib on Eliquis prior RVR, distant hx ? ulcerative colitis pt recall prednisone therapy, NIDDM on Rybelsus with wt loss, GERD, HTN, hyperlipidemia, PE, obesity, PVD, prior CBD stone ERCP and bertha with onset of multiple
bloody BM's since 07/04. Initially pt saw red bleed then some darker clots. Bleeding was associated with some lower abdominal pain. On admission labs notable for hbg 15.6, creat 1.4, glucose 221, bili 0.8, AST 50, ALT 39, alk phos 112 with recent
elevated LFT's. In review with patient she admit to history of ulcerative colitis many years ago. She has not had any recurrent symptoms but admits to constipation over last year since starting Rybelsus. hx colonoscopy 2004 Dr. Tom -
Diverticulosis. - Erythematous mucosa in the sigmoid colon. - Diverticulosis without evidence of diverticular bleeding. - Irritable bowel syndrome. - Hemorrhoids.
-rectal bleeding
-left lower and mid abdominal pain
-distant hx ? ulcerative colitis
-wt loss over last years with Rybelsus for NIDDM
-transaminase elevation
-chronic constipation with Fybesus use
-CKD
other med problems:
-GERD
-HTN
-hyperlipidemia
-PE
-obesity
-prior CBD stone/ERCP and bertha
-son with hx colon polyps
PLAN:
Left lower quadrant pain with diarrhea and rectal bleeding most likely related to ischemic colitis versus less likely acute diverticulitis or related to angioectasias. Less likely related to hemorrhoids
Hold on CT since her pain is improving and no further bleeding
Will advance to low residue diet
Continue to monitor hemoglobin off Eliquis
If no further bleeding could restart Eliquis Monday
LFT elevation may be med related with amiodarone and statin vs MAFLD
cont to trend
hepatitis panel - P
No further bleeding and hemoglobin remains stable will advance diet to low residue diet and okay to DC home and can restart Eliquis tomorrow follow-up as outpatient.
Also told her to take Colace daily for chronic constipation on Rybelsus and she says that the MiraLAX did not help her so I told her to use milk of magnesia or senna as needed
Will s/o and will be available as needed
-
Subjective
Subjective
Date of Service: July 07, 2024
Abdominal pain has markedly improved and she has not had any further episodes of bleeding, hemoglobin remains stable
Objective
Data Reviewed
Laboratory Data:
Laboratory Results
07/07/24 06:06
07/07/24 06:06
Laboratory Results
APTT 33.6 Sec (23.4-35.0) 07/05/24 11:19
Total Bilirubin 0.8 mg/dl (0.2-1.3) 07/06/24 06:15
AST 44 U/L (14-36) H 07/06/24 06:15
ALT 37 U/L (0-35) H 07/06/24 06:15
Alkaline Phosphatase 89 U/L (38-126) 07/06/24 06:15
Vital Signs and I&O:
Vital Signs
Temp Pulse Resp BP Pulse Ox
97.8 F 61 14 136/55 95
07/07/24 07:00 07/07/24 07:00 07/07/24 07:00 07/07/24 07:00 07/07/24 07:00
I&O
07/06/24 07/07/24 07/08/24
06:59 06:59 06:59
Intake Total 900 / 900
Balance 900 / 900
Physical Exam
Physical Exam
Cardiology: Normal Sinus Rhythm
GI: Soft, Non Distended, Non Tender and Normal Bowel Sounds
[2024-07-07] MEDS: CLARITIN 10 MG PO (08:37)
[2024-07-07] MEDS: TOPROL XL 12.5 MG PO (08:37)
[2024-07-07] MEDS: PACERONE 200 MG PO (08:37)
[2024-07-07] MEDS: NOVOLOG FLEXPEN-LOW RESISTANCE SC (08:37)
[2024-07-07] MEDS: CARDIZEM CD 240 MG PO (08:37)
[2024-07-07] MEDS: REFRESH EYE DROPS (PF) 1 DROPS BOTH EYES (08:37)
[2024-07-07] MEDS: PROTONIX 40 MG PO (08:38)
--- NOTE | 2024-07-07 10:02 | W.PN.HOSP.TC ---
Today's Communication/Plan
-
Discharge home if tolerates diet.
Assessment / Plan
Assessment / Plan
Impression:
83-year-old female past medical history of gastric ulcer bleeding 25 years ago, IBS, chronic diarrhea, paroxysmal atrial fibrillation on Eliquis, bradycardia status post dual-chamber permanent pacemaker, hypertension, hyperlipidemia, diabetes,
peripheral vascular disease, right carotid endarterectomy in 2020, pulmonary embolism 2004, presenting with multiple bloody bowel movements bright red blood with clots and intermittent abdominal cramping in the lower abdomen and left side with no
fevers but she was having sweats. No nausea or vomiting. No dizziness. No shortness of breath. No recent travel or illness.
No further bowel movements.
GI recommending clear liquid
Patient tolerated clear liquid diet, then advance to low residual diet.
Patient tolerates low residual diet to be discharged today.
Assessment/plan:
Acute Bright red blood per rectum likely lower GI bleeding possibly diverticular
History of IBS
History of gastric ulcer bleeding 25 years ago
-Tenderness in the left and lower quadrants
-No active bleeding currently
-Hemoglobin stable
-Hold Eliquis
-Clear liquid diet.
Seen by GI to consider CTA abdomen pelvis with further bloody bowel movements
07/07
Patient tolerated clear liquid diet, then advance to low residual diet.
Patient tolerates low residual diet to be discharged today.
Paroxysmal atrial fibrillation
Currently sinus rhythm
- Hold Eliquis
- Hold amiodarone
- Hold diltiazem
History of bradycardia status post dual-chamber permanent pacemaker
Essential hypertension
- Continue metoprolol
Hyperlipidemia
- Continue statin
History of diabetes mellitus
Hold Rybelsus
Insulin sliding scale
Diabetic diet
Hemoglobin A1c pending.
Peripheral vascular disease
History of right carotid endarterectomy 2020
History of pulmonary embolism in 2004
CODE STATUS: DNR/DNI
DVT prophylaxis: SCDs
Diet: Low residual
Disposition: Discharge home if tolerates diet.
Total time spent on today's encounter was 65 minutes which included time spent in counseling the patient/family regarding diagnosis and treatment plan as listed above, goals of care, and symptom management. Case was discussed with nursing staff,
specialists, and care coordinators/case management. All labs and imaging personally reviewed by me. Remainder the time spent in detailed review of previous records, lab data, imaging, and other medical provider documentation.
Anticipated Discharge: Today
Subjective/Interval History
-
Date of Service: July 07, 2024
Patient seen and examined at bedside, denies any chest pain or shortness of breath, no abdominal pain, no nausea, no vomiting, no diarrhea or constipation.
Advance diet to low residual diet
Objective Data
-
Labs:
Laboratory Results
07/07/24
06:06
WBC 8.3
Hgb 14.7
Hct 44.5
Plt Count 193
Sodium 138
Potassium 4.4
Chloride 108 H
Carbon Dioxide 26
BUN 15
Creatinine 1.4 H
Glucose 119 H
Calcium 9.1
Vital Signs:
Vital Signs
Temp Pulse Resp BP Pulse Ox
97.8 F 61 14 136/55 95
07/07/24 07:00 07/07/24 07:00 07/07/24 07:00 07/07/24 07:00 07/07/24 07:00
I&O
07/06/24 07/07/24 07/08/24
06:59 06:59 06:59
Intake Total 900 / 900
Balance 900 / 900
Physical Exam
-
General: Well Developed, Well Nourished, No Apparent Distress and Comfortable
HEENT: Normocephalic, Atraumatic, Moist Mucous Membranes, No Ptosis, PERRLA and Nose Appears Normal
Respiratory: Clear to Auscultation and Non Labored Respirations
Cardiac: Regular Rhythm and S1/S2
Breast: Deferred by me
GI: Soft, Nondistended, Normal Bowel Sounds and Tender (Mild left lower quadrant tenderness)
Genito-urinary: No Costovertebral Tender
Musculoskeletal: No Clubbing, No Cyanosis and No Edema
Skin: Warm
Neuro: Awake, Alert, Oriented, AO x 3 and No Motor Deficits
Psych: Calm
Data Reviewed
-
Diagnostic Radiology: Image personally visualized and interpreted and Report Reviewed by me
CT Scan: Image personally visualized and interpreted and Report Reviewed by me
Ultrasound: Image personally visualized and interpreted and Report Reviewed by me
MRI: Image personally visualized and interpreted and Report Reviewed by me
Medical Tests (Nuc Med, Echo etc): Image personally visualized and interpreted and Report Reviewed by me
Labs: Labs Reviewed by me
Old Records: Reviewed
--- NOTE | 2024-07-07 10:09 | W.DCSUMMARY ---
Discharge Summary
Discharge Data
Date of Admission: 07/05/24
Date of Discharge: 07/07/24
-
Pending Results: No
Hospital Course
Hospital course
83-year-old female past medical history of gastric ulcer bleeding 25 years ago, IBS, chronic diarrhea, paroxysmal atrial fibrillation on Eliquis, bradycardia status post dual-chamber permanent pacemaker, hypertension, hyperlipidemia, diabetes,
peripheral vascular disease, right carotid endarterectomy in 2020, pulmonary embolism 2004, presenting with multiple bloody bowel movements bright red blood with clots and intermittent abdominal cramping in the lower abdomen and left side with no
fevers but she was having sweats. No nausea or vomiting. No dizziness. No shortness of breath. No recent travel or illness.
No further bowel movements.
GI recommending clear liquid
Patient tolerated clear liquid diet, then advance to low residual diet.
Patient tolerates low residual diet to be discharged today.
During hospitalization patient was treated from the following
Acute Bright red blood per rectum likely lower GI bleeding possibly diverticular
History of IBS
History of gastric ulcer bleeding 25 years ago
-Tenderness in the left and lower quadrants
-No active bleeding currently
-Hemoglobin stable
-Hold Eliquis
-Clear liquid diet.
Seen by GI to consider CTA abdomen pelvis with further bloody bowel movements
07/07
Patient tolerated clear liquid diet, then advance to low residual diet.
Patient tolerates low residual diet to be discharged today.
Paroxysmal atrial fibrillation
Currently sinus rhythm
- Hold Eliquis
- Hold amiodarone
- Hold diltiazem
History of bradycardia status post dual-chamber permanent pacemaker
Essential hypertension
- Continue metoprolol
Hyperlipidemia
- Continue statin
History of diabetes mellitus
Hold Rybelsus
Insulin sliding scale
Diabetic diet
Hemoglobin A1c 6.3
Peripheral vascular disease
History of right carotid endarterectomy 2020
History of pulmonary embolism in 2004
CODE STATUS: DNR/DNI
DVT prophylaxis: SCDs
Diet: Low residual
Disposition: Discharge home if tolerates diet.
Total time spent on today's encounter was 40 minutes which included time spent in counseling the patient/family regarding diagnosis and treatment plan as listed above, goals of care, and symptom management. Case was discussed with nursing staff,
specialists, and care coordinators/case management. All labs and imaging personally reviewed by me. Remainder the time spent in detailed review of previous records, lab data, imaging, and other medical provider documentation.
Anticipated Discharge: Today
Discharge Plan
-
Patient Disposition: Home (Routine Discharge)
Discharge Diagnosis/Procedures: Rectal bleeding.
Paroxysmal A-fib.
Essential hypertension
Diet: Low Residue and Diabetic, Carb Controlled
Activity: As tolerated
Referrals:
Joann Dunn MD [Family Provider, Internal Medicine]
Additional Discharge Medication Instructions: Resume Eliquis Saturday 07/08
Prescriptions:
Continued
simvastatin 10 MG tablet
10 mg PO HS
lansoprazole 15 MG capsule,delayed release(DR/EC)
15 mg PO BID
acetaminophen 650 mg Tablet Extended Release
1,300 mg PO DAILY
metoprolol succinate 25 mg Tablet Extended Release 24 Hr
12.5 mg PO DAILY
Systane (PF) 0.4-0.3 % Dropperette
1 drp BOTH EYES BID
Rybelsus 3 mg Tablet
3 mg PO DAILY
amiodarone [Pacerone] 200 mg tablet
200 mg PO DAILY
diltiazem HCl 240 mg Capsule,Extended Release 24hr
240 mg PO DAILY
Claritin-D 24 Hour 10-240 mg Tablet Extended Release 24 Hr
1 tab PO DAILY
Held
Eliquis 5 mg Tablet
5 mg PO BID
Hold Instructions: Resume on 07/08/24.
Discharge Orders:
Discharge Patient (As Directed); Ordered 07/07/24
Ordered By: Jessica Wright
Discharge Date and Time
Print Language: ARABIC
[2024-07-07 11:34] LABS: Glucose - Point of Care 153 mg/dl (70-99)
[2024-07-07] MEDS: NOVOLOG FLEXPEN-LOW RESISTANCE 1 UNITS SC (12:45)
[2024-07-07 13:57] VITALS: BP 146/56
[2024-07-08 18:44] LABS: Hepatitis B Surface Antigen Negative (Negative)
[2024-07-08 18:51] LABS: Hepatitis A IgM Antibody Negative (Negative); Hepatitis B Core Ab, IgM Negative (Negative)
[2024-07-08 19:03] LABS: Hepatitis A Antibody, Total Negative (Negative); Hepatitis B Core Ab, Total Negative (Negative); Hepatitis B Surface Antibody Negative; Hepatitis C Antibody Negative (Negative)
== END 2024-07-07 14:39 | disposition home or self-care (01) | DRG 379 ==
LOC: 2 NORTH 15:48
PROVIDERS: Emergency Medicine; Nurse Practitioner Adult Health; ADMITTING PHYSICIAN Hospitalist; ATTENDING PHYSICIAN General Practice; CONSULT PHYSICIAN Internal Medicine Gastroenterology; EMERGENCY PHYSICIAN Emergency Medicine; FAMILY PHYSICIAN Student in an Organized Health Care Education/Training Program
DX: K57.91 Diverticulosis of intestine, part unspecified, without perforation or abscess with bleeding (principal); Z87.11 Personal history of peptic ulcer disease; K58.1 Irritable bowel syndrome with constipation; I48.0 Paroxysmal atrial fibrillation; Z79.01 Long term (current) use of anticoagulants; I12.9 Hypertensive chronic kidney disease with stage 1 through stage 4 chronic kidney disease, or unspecified chronic kidney disease; N18.9 Chronic kidney disease, unspecified; E78.00 Pure hypercholesterolemia, unspecified; E11.51 Type 2 diabetes mellitus with diabetic peripheral angiopathy without gangrene; E11.22 Type 2 diabetes mellitus with diabetic chronic kidney disease; Z79.84 Long term (current) use of oral hypoglycemic drugs; Z86.711 Personal history of pulmonary embolism; Z66 Do not resuscitate; Z88.8 Allergy status to other drugs, medicaments and biological substances; E66.9 Obesity, unspecified; Z68.32 Body mass index [BMI] 32.0-32.9, adult; K21.9 Gastro-esophageal reflux disease without esophagitis; Z95.0 Presence of cardiac pacemaker
CPT/HCPCS: 36415; 80048; 80053; 82962; 83036; 84450; 84460; 85025; 85027; 85730; 86704; 86705; 86706; 86708; 86709; 86803; 86850; 86900; 86901; 87045; 87046; 87077; 87340; 87427; 99284

== ENCOUNTER → 2024-07-17 15:10 | Outpatient (REF) | payer MEDICARE, BC, SELFPAY | LOC: RAD 15:10 | PROVIDERS: ATTENDING PHYSICIAN Student in an Organized Health Care Education/Training Program | DX: R79.89 Other specified abnormal findings of blood chemistry (principal) | CPT/HCPCS: 76700 ==

== ENCOUNTER → 2024-08-06 12:46 | Outpatient (REF) | payer MEDICARE, BC, SELFPAY ==
[2024-08-06 13:55] LABS: Hematocrit 46.5 % (37.0-47.0); Hemoglobin 14.7 g/dL (12.0-16.0); Mean Corp Hgb Conc. 31.6 g/dL (33.0-37.0); Mean Corpuscular Volume 90.1 fL (81.0-99.0); Nucleated Red Blood Cells % 0 %; Platelet Count 205 10^3/uL (130-400); Red Cell Dist. Width 14.4 % (11.5-14.5)
[2024-08-06 14:26] LABS: Glycohemoglobin (HgbA1c) 6.4 % (4.0-5.6)
[2024-08-06 14:35] LABS: ALT (SGPT) 40 U/L (0-35); AST (SGOT) 41 U/L (14-36); Iron 78 ug/dl (37-170)
[2024-08-06 14:44] LABS: Total Iron Binding Capacity 344 ug/dl (265-497)
[2024-08-06 15:04] LABS: Ferritin 36.5 ng/ml (11.1-264.0)
== END ==
LOC: REG 12:46
PROVIDERS: ATTENDING PHYSICIAN Student in an Organized Health Care Education/Training Program; FAMILY PHYSICIAN Internal Medicine Cardiovascular Disease
DX: Z09 Encounter for follow-up examination after completed treatment for conditions other than malignant neoplasm (principal); Z87.19 Personal history of other diseases of the digestive system; E11.9 Type 2 diabetes mellitus without complications; I10 Essential (primary) hypertension; R79.89 Other specified abnormal findings of blood chemistry
CPT/HCPCS: 36415; 82728; 83036; 83540; 83550; 84450; 84460; 85025

== ENCOUNTER → 2024-10-01 11:18 | Outpatient (REF) | payer MEDICARE, BC, SELFPAY | LOC: RAD 11:18 | PROVIDERS: ATTENDING PHYSICIAN Surgery Vascular Surgery; FAMILY PHYSICIAN Student in an Organized Health Care Education/Training Program | DX: I65.21 Occlusion and stenosis of right carotid artery (principal) | CPT/HCPCS: 93880 ==